=== PATIENT | male | born 1960 | race Caucasian/White ===

== ENCOUNTER 2016-06-19 21:35 | Emergency (ER) | payer BC ==
[~2016-06-19] VITALS: Ht 182.9 cm; Wt 127.3 kg
[2016-06-19 21:35] VITALS: PULSE 0
== END 2016-06-20 00:34 | disposition expired ==
LOC: EDBD 21:35 → COL.ER 21:35
DX: I46.9 Cardiac arrest, cause unspecified (principal)
CPT/HCPCS: J7030